=== PATIENT | female | born 1960 | race Caucasian/White ===

== ENCOUNTER → 2016-11-07 | Outpatient (CLI) | payer MEDICARE, BC, OTHER ==
[~2016-11-07] MED LIST: AMIT25TA PO; CIPR500T PO; ESTR0.3T PO; ESTR50GE TD; FLUO20CA8 PO; IOHEXOL 240 MG/ML 50ML VIAL. PO ONE; IOHEXOL 300 MG/ML 75 ML VIAL IV ONE; IPRA0.2S5 IH; ONDA4TAB12 PO; TOPI50TA75 PO
--- NOTE | 2016-11-07 11:29 | RAD ---
Indication abdominal discomfort for one month. Axial images through the abdomen and pelvis were obtained. Both oral and IV contrast were administered. Approximately 75 cc of Omnipaque 300 was administered intravenously. No prior imaging is available. There is some dependent atelectasis at the lung bases. The lung bases are otherwise unremarkable. The liver and spleen appear unremarkable. Clips are noted in the gallbladder fossa. No adrenal or renal anomalies are seen. The pancreas appears unremarkable. A focal mass inflammatory process or acute finding in the abdomen is not seen. No acute or significant findings seen in the pelvis. IMPRESSION: No acute or significant finding seen in the abdomen or pelvis PQRS Compliance Statement: One or more of the following individualized dose reduction techniques were utilized for this examination: 1. Automated exposure control 2. Adjustment of the mA and/or kV according to patient size 3. Use of iterative reconstruction technique
== END | disposition home or self-care (01) ==
LOC: CT 08:00
PROVIDERS: ATTEND Nurse Practitioner Family
DX: R10.9 Unspecified abdominal pain (principal)
CPT/HCPCS: 74177; Q9966; Q9967

== ENCOUNTER → 2016-11-18 | Day surgery (SDC) | payer MEDICARE, BC, OTHER ==
[~2016-11-18] MED LIST changes: +HYDROmorphone 2 MG/ML VIAL IV PRN; -IOHEXOL 240 MG/ML 50ML VIAL. PO ONE; -IOHEXOL 300 MG/ML 75 ML VIAL IV ONE; +IV RINGERS,LACTATED 1000ML 1,000 ML IV SCH; +LIDOCAINE 1% 1 ML SYRINGE. ID PRN; +LIDOCAINE 2% PF Vial for OR 5 ML VIAL. ONE; +MORPHINE SULFATE 2 MG/ML DISP.SYRIN. IV PRN; +ONDANSETRON PF 4 MG/2 ML VIAL. IV PRN; +PROCHLORPERAZINE 10 MG/2 ML VIAL. IV PRN; +PROPOFOL 40 ML IV ONE; +[UNRECOGNIZED DRUG - CODE] SQ; +fentaNYL PF VIAL 100 MCG/2 ML VIAL IV PRN
[2016-11-18 17:23] VITALS: BP 122/72
== END | disposition home or self-care (01) ==
LOC: ENDOS 16:13
PROVIDERS: ATTEND Internal Medicine Gastroenterology
DX: K21.0 Gastro-esophageal reflux disease with esophagitis (principal); K29.50 Unspecified chronic gastritis without bleeding; F32.9 Major depressive disorder, single episode, unspecified; Z90.49 Acquired absence of other specified parts of digestive tract; Z90.710 Acquired absence of both cervix and uterus; Z72.89 Other problems related to lifestyle; Z86.69 Personal history of other diseases of the nervous system and sense organs
CPT/HCPCS: 43239; J2704

== ENCOUNTER → 2016-12-05 | Outpatient (CLI) | payer MEDICARE, BC, OTHER ==
[2016-11-18 17:23] VITALS: BP 122/72
[~2016-12-05] MED LIST changes: +BARIUM SULFATE 105% 1,900 ML SUSP PO ONE; -HYDROmorphone 2 MG/ML VIAL IV PRN; -IV RINGERS,LACTATED 1000ML 1,000 ML IV SCH; -LIDOCAINE 1% 1 ML SYRINGE. ID PRN; -LIDOCAINE 2% PF Vial for OR 5 ML VIAL. ONE; -MORPHINE SULFATE 2 MG/ML DISP.SYRIN. IV PRN; -ONDANSETRON PF 4 MG/2 ML VIAL. IV PRN; -PROCHLORPERAZINE 10 MG/2 ML VIAL. IV PRN; -PROPOFOL 40 ML IV ONE; -TOPI50TA75 PO; +TOPI50TA8 PO; -fentaNYL PF VIAL 100 MCG/2 ML VIAL IV PRN
--- NOTE | 2016-12-05 12:20 | RAD ---
Indication incomplete colonoscopy approximately 2 weeks previously. Preliminary film of the abdomen was obtained and appeared normal. Significant diverticular disease is not seen. Constricting lesion or dominant mass is not apparent. No mucosal abnormality is seen. There was some retained stool in the colon which would preclude identification of smaller lesions. A filling defect is seen in the sigmoid colon which probably reflects stool. A polypoid lesion is felt much less likely but cannot be entirely excluded in the sigmoid colon. This would be easily visualized with sigmoidoscopy. Correlation with the colonoscopy procedure obtained several weeks earlier advised No definite abnormality was seen. Neither the terminal ileum or the appendix was filled however there is what appears to be identification of the ileocecal valve. 19 spot fluoroscopic images were obtained associated with the exam. Fluoroscopy, associated with the study was 3.7 minutes IMPRESSION: Small amount of retained stool. Probable small amount of stool in the sigmoid colon as outlined above. Correlation with the recent colonoscopy advised
== END | disposition home or self-care (01) ==
LOC: RAD 07:54
PROVIDERS: ATTEND Internal Medicine Gastroenterology
DX: Z91.19 Patient's noncompliance with other medical treatment and regimen (principal)
CPT/HCPCS: 74270

== ENCOUNTER → 2016-12-19 | Outpatient (CLI) | payer MEDICARE, BC, OTHER ==
[2016-11-18 17:23] VITALS: BP 122/72
[~2016-12-19] MED LIST changes: -BARIUM SULFATE 105% 1,900 ML SUSP PO ONE
--- NOTE | 2016-12-19 09:50 | RAD ---
Indication nausea vomiting. Duration 2 months. 2 mCi of technetium sulfur colloid was mixed with material simulating a solid meal. The time for half gastric emptying is estimated at 403 minutes. This is in excess of 6 hours and is significantly delayed. IMPRESSION: Marked delay in gastric emptying
== END | disposition home or self-care (01) ==
LOC: NM 07:24
PROVIDERS: ATTEND Internal Medicine Gastroenterology
DX: K30 Functional dyspepsia (principal); K59.00 Constipation, unspecified
CPT/HCPCS: 78264; A9541